=== PATIENT | male | born 1950 | race Caucasian/White ===

== ENCOUNTER → 2017-07-12 | Outpatient (CLI) | payer MEDICARE, OTHER ==
[~2017-07-12] MED LIST: ANTIVERT25 MG PO; ZOFRAN4 MG PO
== END ==
LOC: M.ULTRA 07:21
DX: N28.1 Cyst of kidney, acquired (principal); R16.1 Splenomegaly, not elsewhere classified

== ENCOUNTER 2020-03-03 15:11 | Emergency (ER) | payer MEDICARE, OTHER ==
[~2020-03-03] VITALS: Ht 175.3 cm; Wt 90.7 kg
[2020-03-03] MEDS ORDERED: FLOMAX0.4 MG PO (15:21)
[2020-03-03] MEDS ORDERED: LISINOPRIL2.5 MG PO (15:21)
[2020-03-03] MEDS ORDERED: ALLOPURINOL 10100 M3 PO (15:21)
[2020-03-03 15:41] LABS: ABSOLUTE EOSINOPHILS 0.1 thou/uL (0.0-0.7); ABSOLUTE LYMPHOCYTES 1.4 thou/uL (0.8-5.3); ABSOLUTE MONOCYTES 0.8 thou/uL (0.0-1.2); ABSOLUTE NEUTROPHILS 4.4 thou/uL (1.6-8.1); BASOPHILS 0.4 %; EOSINOPHILS 1.4 %; HEMATOCRIT 45.1 % (42.0-52.0); HEMOGLOBIN 15.1 gm/dL (14.0-18.0); LYMPHOCYTES 20.9 %; MCH 29.6 pg (26.0-34.0); MCHC 33.4 g/dL (28.0-37.0); MCV 88.5 fL (80.0-100.0); MONOCYTES 11.6 %; NUCLEATED RBCS 0 /100WBC; PLATELET COUNT* 136 thou/uL (150-400); POLYS 65.7 %; WBC 6.7 thou/uL (4.0-11.0)
[2020-03-03 15:48] LABS: CALCIUM 8.6 mg/dL (8.5-10.1); POTASSIUM 4.1 mmol/L (3.5-5.1)
[2020-03-03 15:52] LABS: ALBUMIN 4.1 g/dL (3.4-5.0); TOTAL PROTEIN 7.5 g/dL (6.4-8.2)
[2020-03-03 16:34] LABS: URINE BILIRUBIN NEGATIVE (Negative); URINE BLOOD NEGATIVE (Negative); URINE CLARITY CLEAR; URINE COLOR YELLOW; URINE GLUCOSE-RANDOM NEGATIVE (Negative); URINE KETONES 1+ (Negative); URINE LEUKOCYTES-REFLEX NEGATIVE (Negative); URINE NITRITE-REFLEX NEGATIVE (Negative); URINE PROTEIN NEGATIVE (Negative); URINE UROBILINOGEN 0.2 E.U./dl (0.2-1.0)
[2020-03-03] MEDS ORDERED: ZOFRAN ODT4 MG SUBLING (16:52)
[2020-03-03] MEDS ORDERED: NORCO 5-325 TA1 EAC2 PO (16:52)
[2020-03-03 16:58] VITALS: BP 115/70
--- NOTE | 2020-03-04 08:27 | EKG ---
[place] [address] ELECTROCARDIOGRAM REPORT Name: CODIEBON M Room: [facility]#: [id number] Admission: 03/03/20 Attend Phys: Discharge: 03/03/20 Date of : 46 Date of Service: 03/03/20 1521 Report #: [id number] THIS REPORT FOR: //name// [facility] ED Test Date: 2020-03-03 Test Time: 15:21:22 Pat Name: BON MACKAY Department: Room: Gender: Solutions Architect Consultant: : [id number] Requested By: Kamaljit Giles Order Number: [id number] MD: Mihir Clemons Measurements Intervals [place] Rate: 74 P: 12 NM: 178 QRS: -15 QRSD: 115 T: -12 QT: 398 QTc: 442 Interpretive Statements Sinus rhythm Baseline wander in lead(s) I,II,aVR,aVL,V3 Compared to ECG 10/24/2013 19:35:57 ST (T wave) deviation no longer present Electronically Signed On 03-04-2020 8:27:10 CDT by Mihir Clemons [email or web address] <ELECTRONICALLY SIGNED> By: Mihir Clemons MD, FACC 03/04/20 0827 1521 1521 Mihir Clemons MD, FAC /EPI
== END 2020-03-03 16:58 | disposition home or self-care (01) ==
LOC: M.ERS 15:11
PROVIDERS: Family Medicine
DX: R10.13 Epigastric pain (principal); I10 Essential (primary) hypertension